=== PATIENT | male | born 1990 | race African-American/Black ===

== ENCOUNTER 2019-05-22 05:58 | Emergency (ER) | payer OTHER ==
[~2019-05-22] VITALS: Ht 170.2 cm; Wt 61.5 kg
[2019-05-22 06:00] VITALS: BP 137/90
== END 2019-05-22 09:05 | disposition home or self-care (01) ==
LOC: ER 05:58
DX: K64.9 Unspecified hemorrhoids (principal); F17.200 Nicotine dependence, unspecified, uncomplicated; F12.10 Cannabis abuse, uncomplicated
CPT/HCPCS: 99282